=== PATIENT | female | born 1945 | race Hispanic/Latino ===

== ENCOUNTER → 2025-05-08 | Outpatient (REF) | payer MEDICARE ==
[~2025-05-08] MED LIST: FLAGYL250 MG PO; LEVOTHYROXINE25 MCG PO; LINZESS PO; LISINOPRIL-HCT1 EAC1 PO; LOVASTATIN20 MG PO; NAPROXEN375 MG PO
== END ==
LOC: RAD 14:21
PROVIDERS: ATTEND Specialist/Technologist, Other Surgical Technologist
DX: I73.9 Peripheral vascular disease, unspecified (principal)
CPT/HCPCS: 93925; 93970

== ENCOUNTER 2025-05-13 09:41 | Emergency (ER) | payer MEDICARE ==
[~2025-05-13] VITALS: Ht 177.8 cm; Wt 61.7 kg
[~2025-05-13 09:41] MED LIST changes: -NAPROXEN375 MG PO
[2025-05-13 10:20] VITALS: PULSE 60; RESP 18; TEMP 98.6; O2SAT 99
[2025-05-13] MEDS ORDERED: NAPROXEN375 MG PO (10:26)
== END 2025-05-13 11:09 | disposition home or self-care (01) ==
LOC: ER 09:50
DX: M79.605 Pain in left leg (principal); M76.892 Other specified enthesopathies of left lower limb, excluding foot
CPT/HCPCS: 99283

== ENCOUNTER → 2025-05-23 | Outpatient (REF) | payer MEDICARE ==
[~2025-05-23] MED LIST changes: +NAPROXEN375 MG PO
== END ==
LOC: RAD 09:18
PROVIDERS: ATTEND Student in an Organized Health Care Education/Training Program
DX: M25.562 Pain in left knee (principal)